=== PATIENT | female | born 1945 | race Caucasian/White ===

== ENCOUNTER 2020-10-13 14:23 | Inpatient (IN) ==
[2020-10-13] MEDS ORDERED: DEXTROSE 50% 25 GM/50 ML VIAL IV PRN (17:19)
[2020-10-13] MEDS ORDERED: ALBUTEROL 2.5 MG/3 ML NEB RESP TX PRN (17:19)
[2020-10-13] MEDS ORDERED: ACETAMINOPHEN 325 MG TABLET PO PRN (17:19)
[2020-10-13] MEDS ORDERED: GLUCAGON 1 MG VIAL IM PRN (17:19)
[2020-10-13] MEDS ORDERED: NOREPINEPHRINE 8 MG in SODIUM CHLORIDE 0.9% 242 ML IV SCH (17:30)
[2020-10-13] MEDS ORDERED: ENOXAPARIN 30 MG/0.3 ML SYRINGE SUBCUT SCH (17:30)
[2020-10-13] MEDS ORDERED: SODIUM CHLORIDE 0.9% 1,000 ML IV ONE (17:34)
[2020-10-13] MEDS ORDERED: LEVOFLOXACIN INJ 500 MG in PREMIX 1 EACH IV SCH (18:00)
[2020-10-13] MEDS: LACTATED RINGERS 1,000 ML IV SCH (18:41)
[2020-10-13] MEDS: INSULIN LISPRO 100 UNIT/ML SUBCUT SCH ×2 (18:47→23:46)
[2020-10-13 21:02] LABS: ABG Base Excess -5.3 MMOL/L (-2.5-2.5); ABG HCO3 19.3 MMOL/L (20-26); ABG Oxygen Saturation 54.7 % (95-100); ABG PCO2 40.4 MM HG (35-48); ABG PH 7.316 (7.35-7.45); ABG TCO2 18.5 MMOL/L (23-27)
[2020-10-13 21:06] LABS: ABG PO2 33.3 MM HG (80-95)
[2020-10-13] MEDS ORDERED: ONDANSETRON 4 MG/2 ML VIAL IV PRN (22:08)
[2020-10-13] MEDS: MORPHINE 4 MG/1 ML VIAL IV PRN (22:23)
[2020-10-13] MEDS: MEROPENEM 500 MG in SODIUM CHLORIDE 0.9% 100 ML IV SCH (22:31)
[2020-10-13 22:36] LABS: Basophils # 0.2 10*3/uL (0.0-0.2); Basophils % 0.5 % (0.0-0.8); Hematocrit 40.5 VOL% (35.7-47.0); Hemoglobin 13.1 GM/DL (12.0-16.0); Immature Granulocytes % 3.3 %; Immature Granulocytes Absolute 1.22 #; Lymphocytes # 1.4 10*3/uL (1.4-4.0); Lymphocytes % 3.7 % (21.3-54.2); Mean Corpuscular HGB Conc 32.3 GM/DL (32-36); Mean Corpuscular Volume 90.6 FL (87-102); Monocytes % 6.3 % (1.7-12.7); NRBC # 0.02 10*3/uL; Neutrophils % 86.2 % (38.7-73.9); Platelet Count 242 T/CUMM (130-400); Red Blood Count 4.47 MC/CUMM (3.8-5.5); Red Cell Distribution Width 14.3 % (9.3-17.3); White Blood Count 36.7 T/CUMM (4-12)
[2020-10-13 22:59] LABS: Alanine Aminotransferase 129 U/L (13-56); Alkaline Phosphatase 83 U/L (45-117); Aspartate Amino Transferase 529 U/L (0-37); Blood Urea Nitrogen 60 MG/DL (7-18); Calcium 7.4 MG/DL (8.5-10.1); Carbon Dioxide 17 MMOL/L (21-32); Estimated Glom Filtration Rate 12 ML/MIN; Glucose 149 MG/DL (74-106); Potassium 4.3 MMOL/L (3.5-5.1); Sodium 136 MMOL/L (136-145); Total Protein 6.1 G/DL (6.4-8.2)
[2020-10-13 23:03] LABS: Band Neutrophils 5 % (0-10); Lymphocytes 5 % (20-55); Platelet Estimate Normal; Segmented Neutrophils 85 % (50-85); Total Cells Counted 100
[2020-10-13 23:06] LABS: Microcytosis 1+; Polychromasia Slight
[2020-10-14] MEDS ORDERED: PANTOPRAZOLE 40 MG VIAL IV ONE (00:49)
[2020-10-14] MEDS ORDERED: SODIUM CHLORIDE 0.9% 1,000 ML IV ONE (00:51)
[2020-10-14] MEDS: MEROPENEM 500 MG in SODIUM CHLORIDE 0.9% 100 ML IV SCH (01:12)
[2020-10-14] MEDS: LACTATED RINGERS 1,000 ML IV SCH ×2 (02:40→11:11)
[2020-10-14] MEDS: INSULIN LISPRO 100 UNIT/ML SUBCUT SCH ×3 (04:11→12:46)
[2020-10-14 04:24] LABS: Basophils % 0.1 % (0.0-0.8); Hematocrit 37.2 VOL% (35.7-47.0); Hemoglobin 12.1 GM/DL (12.0-16.0); Immature Granulocytes % 4.2 %; Immature Granulocytes Absolute 1.65 #; Lymphocytes # 1.7 10*3/uL (1.4-4.0); Lymphocytes % 4.3 % (21.3-54.2); Mean Corpuscular HGB Conc 32.5 GM/DL (32-36); Mean Corpuscular Volume 89.6 FL (87-102); Mean Platelet Volume 12.2 FL (9.6-12.0); Monocytes % 6.4 % (1.7-12.7); NRBC # 0.02 10*3/uL; Platelet Count 245 T/CUMM (130-400); Red Blood Count 4.15 MC/CUMM (3.8-5.5); Red Cell Distribution Width 14.5 % (9.3-17.3); White Blood Count 39.4 T/CUMM (4-12)
[2020-10-14] MEDS ORDERED: AMIODARONE INJ 150 MG in DEXTROSE 5% 100 ML IV ONE (04:34)
[2020-10-14 04:35] LABS: INR 1.2
[2020-10-14] MEDS ORDERED: AMIODARONE 150 MG/3 ML VIAL ONE (04:35)
[2020-10-14] MEDS ORDERED: AMIODARONE 450 MG/9 ML VIAL IV ONE (04:36)
[2020-10-14 04:44] LABS: Band Neutrophils 4 % (0-10); Calcium 7.3 MG/DL (8.5-10.1); Lymphocytes 5 % (20-55); Microcytosis Slight; Osmolality,Calculated 291.8 MOS/KG (273-304); Platelet Estimate Adequate; Potassium 4.3 MMOL/L (3.5-5.1); Segmented Neutrophils 82 % (50-85); Total Cells Counted 100
[2020-10-14] MEDS ORDERED: AMIODARONE INJ 450 MG in DEXTROSE 5% 241 ML IV SCH ×2 (05:00→11:00)
[2020-10-14 07:14] LABS: CKMB % 0.4 %; Troponin I 0.127 NG/ML (0.00-0.045)
[2020-10-14] MEDS ORDERED: PANTOPRAZOLE 40 MG TABLET PO SCH (09:00)
[2020-10-14] MEDS ORDERED: MEROPENEM 500 MG in SODIUM CHLORIDE 0.9% 100 ML IV SCH (09:00)
[2020-10-14] MEDS: MORPHINE 4 MG/1 ML VIAL IV PRN (09:00)
[2020-10-14] MEDS ORDERED: KETAMINE 500 MG/10 ML VIAL ONE (10:16)
[2020-10-14] MEDS ORDERED: fentaNYL 100 MCG/2 ML VIAL ONE (10:16)
[2020-10-14] MEDS ORDERED: ETOMIDATE 40 MG/20 ML VIAL IV ONE (10:17)
[2020-10-14] MEDS ORDERED: SUCCINYLCHOLINE 200 MG/10 ML VIAL ONE (10:17)
[2020-10-14] MEDS ORDERED: LIDOCAINE 2% 5 ML VIAL ONE (10:17)
[2020-10-14] MEDS ORDERED: ROCURONIUM 50 MG/5 ML VIAL IV ONE (10:17)
[2020-10-14] MEDS ORDERED: LIDOCAINE 1%/EPI INJ 20 ML VIAL ONE (10:25)
[2020-10-14] MEDS ORDERED: TISSUE ADHESIVE 1 EACH APPLICATOR TOP ONE (10:25)
[2020-10-14] MEDS ORDERED: BUPIVACAINE MPF 0.25% 30 ML VIAL ONE (10:25)
[2020-10-14] MEDS ORDERED: DIGOXIN 0.5 MG/2 ML AMP IV ONE (10:26)
[2020-10-14] MEDS ORDERED: DIGOXIN 0.5 MG/2 ML AMP ONE (10:29)
[2020-10-14] MEDS ORDERED: HEPARIN/NACL 0.9% 2 UNITS/ML 1,000 UNIT/500 ML BAG IV ONE (10:30)
[2020-10-14] MEDS ORDERED: PHENYLEPHRINE DRIP 20 MG/250 ML PREMIX IV ONE (10:31)
[2020-10-14] MEDS ORDERED: METOPROLOL TARTRATE 5 MG/5 ML VIAL IV ONE ×2 (10:44→10:45)
[2020-10-14] MEDS ORDERED: PHENYLEPHRINE INJ 160 MG in SODIUM CHLORIDE 0.9% 234 ML IV PRN (10:49)
[2020-10-14] MEDS ORDERED: PHENYLEPHRINE DRIP 40 MG/250 ML PREMIX IV PRN (10:50)
[2020-10-14] MEDS ORDERED: PHENYLEPHRINE DRIP 40 MG/250 ML PREMIX IV ONE (10:56)
[2020-10-14] MEDS ORDERED: ALBUMIN 5% 12.5 GM/250 ML VIAL IV ONE (11:35)
[2020-10-14] MEDS ORDERED: PHENYLEPHRINE 1 MG/10 ML SYRINGE IV ONE (11:58)
[2020-10-14] MEDS ORDERED: fentaNYL INJ 1,250 MCG in SODIUM CHLORIDE 0.9% 225 ML IV PRN (12:04)
== END 2020-10-14 14:52 | disposition expired | DRG 853 ==
LOC: N.ICU 17:09 → SUATTDRO 17:09
PROVIDERS: ADMIT Internal Medicine; ATTEND Internal Medicine